=== PATIENT | male | born 1975 | race Hispanic/Latino ===

== ENCOUNTER 2016-12-23 17:04 | Emergency (ER) | payer MEDICAID, OTHER ==
[2016-12-23 17:09] VITALS: RESP 18; O2SAT 97
--- NOTE | 2016-12-23 17:37 | ED PDOC ---
HPI: Hypertension/Hypotension Time Seen by Provider: 12/23/16 17:18 Chief Complaint (Nursing): High Blood Pressure Past Medical History Vital Signs: Last Vital Signs Temp 101.1 F H 12/23/16 17:06 Pulse 99 H 12/23/16 17:06 Resp 18 12/23/16 17:06 BP 168/106 H 12/23/16 17:06 Pulse Ox 97 12/23/16 17:06 - Allergies Allergies/Adverse Reactions: Allergies Allergy/AdvReac Type Severity Reaction Status Date / Time No Known Allergies Allergy Verified 12/23/16 17:06 - ECG O2 Sat by Pulse Oximetry: 97 Disposition - Disposition Forms: [place] (Ind[place]ian)
--- NOTE | 2016-12-23 18:14 | RAD ---
HISTORY: Cough, fever. COMPARISON: No prior. TECHNIQUE: Chest PA and lateral FINDINGS: LUNGS: No active pulmonary disease. PLEURA: No significant pleural effusion identified. No pneumothorax apparent. CARDIOVASCULAR: Normal. OSSEOUS STRUCTURES: No significant abnormalities. VISUALIZED UPPER ABDOMEN: Normal. OTHER FINDINGS: None. IMPRESSION: No active disease.
[2016-12-23 18:28] VITALS: TEMP 101.9
[2016-12-23 18:31] LABS: BASO # 0.1 K/uL (0.0-0.2); BASO % 0.7 % (0.0-2.0); EOS # 0.1 K/uL (0.0-0.7); EOS % 0.9 % (0.0-4.0); HEMOGLOBIN 16.7 g/dL (12.0-18.0); LYMPH # 0.8 K/uL (1.0-4.3); MEAN CELL VOLUME 90.7 fl (80.0-94.0); MEAN CORPUSCULAR HEMOGLOBIN 31.9 pg (27.0-31.0); MEAN CORPUSCULAR HGB CONC 35.2 g/dL (33.0-37.0); MEAN PLATELET VOLUME 8.2 fl (7.2-11.7); MONO % 13.4 % (0.0-10.0); NEUT # 5.7 K/uL (1.8-7.0); NRBC % 0.3 % (0.0-0.0); RBC 5.24 Mil/uL (4.40-5.90); RED CELL DISTRIBUTION WIDTH 12.8 % (11.5-14.5); WHITE BLOOD COUNT 7.7 K/uL (4.8-10.8)
[2016-12-23 19:42] LABS: BLOOD UREA NITROGEN 15 mg/dl (9-20); CALCIUM 9.4 mg/dL (8.4-10.2); GFR AFRICAN-AMERICAN > 60; GFR NON-AFRICAN AMERICAN > 60
[2016-12-23 21:49] VITALS: BP 143/105; PULSE 91
== END 2016-12-23 21:38 | disposition home or self-care (01) ==
LOC: H.ER 17:04
DX: I10 Essential (primary) hypertension (principal)

== ENCOUNTER 2017-05-21 06:14 | Emergency (ER) | payer MEDICAID ==
[2017-05-21 06:29] VITALS: RESP 16; TEMP 97.8; O2SAT 98
[2017-05-21 07:47] VITALS: BP 156/108; PULSE 70
--- NOTE | 2017-05-21 07:53 | ED PDOC ---
HPI: CCC, URI, Sore Throat Time Seen by Provider: 05/21/17 07:10 Chief Complaint (Nursing): Cough, Cold, Congestion Chief Complaint (Provider): Cough History Per: Patient History/Exam Limitations: no limitations Have you had recent travel within the past 21 days to any of the following countries: [place], [place], [place] or [place]?: No Onset/Duration Of Symptoms: Days (x1 week) Current Symptoms Are (Timing): Still Present Location Of Pain: None Sick Contacts (Context): None Associated Symptoms: Cough, Nasal Congestion. denies: Fever, Chills, Sputum, Neck Pain, Vomiting, Diarrhea Ear Symptoms: Bilateral: None Additional Complaint(s): 41 year old male with a past medical history of hypertension presents to the ED complaining of cough productive of green phlegm x1 week. Patient states that his cough is exacerbated when he lays down. He also complains of mild rhinnorhea and nasal congestion. Denies shortness of breath, nausea, vomiting, fever, chills, headache, chest pain, back pain, numbness, tingling. Of note: Patient states that he has not taken his blood pressure medications in the past month due to insurance issues.(Norvax 5mg once per day) PMD: Dr. Llamas ([place]) Past Medical History Reviewed: Historical Data, Nursing Documentation, Vital Signs Vital Signs: Last Vital Signs Temp 97.8 F 05/21/17 06:26 Pulse 70 05/21/17 07:35 Resp 16 05/21/17 06:26 BP 156/108 H 05/21/17 07:35 Pulse Ox 98 05/21/17 08:00 - Medical History PMH: HTN - Surgical History Surgical History: Appendectomy - Family History Family History: States: Unknown Family Hx - Social History Current smoker - smoking cessation education provided: No Ex-Smoker (has not smoked in the last 12 months): No Alcohol: None Drugs: Denies - Home Medications Home Medications: Ambulatory Orders Medication Instructions Recorded Ibuprofen [Motrin Tab] 600 mg PO Q6 #30 tab 12/23/16 amLODIPine [Norvasc] 10 mg PO DAILY #30 tab 12/23/16 amLODIPine [Norvasc] 5 mg PO DAILY 10 Days tab 05/21/17 - Allergies Allergies/Adverse Reactions: Allergies Allergy/AdvReac Type Severity Reaction Status Date / Time No Known Allergies Allergy Verified 05/21/17 06:29 Review of Systems ROS Statement: Except As Marked, All Systems Reviewed And Found Negative Cardiovascular: Negative for: Chest Pain Respiratory: Positive for: Cough (productive of green phlegm). Negative for: Shortness of Breath Gastrointestinal: Negative for: Nausea Musculoskeletal: Negative for: Back Pain Neurological: Negative for: Numbness, Headache Physical Exam - Reviewed Nursing Documentation Reviewed: Yes Vital Signs Reviewed: Yes - Physical Exam Appears: Positive for: Non-toxic, No Acute Distress Head Exam: Positive for: ATRAUMATIC, NORMAL INSPECTION, NORMOCEPHALIC Skin: Positive for: Normal Color, Warm, Dry. Negative for: Rash Eye Exam: Positive for: Normal appearance, EOMI, PERRL. Negative for: Nystagmus ENT: Positive for: Normal ENT Inspection, Pharynx Is (clear), Nasal Congestion. Negative for: Pharyngeal Erythema, Tonsillar Exudate, Tonsillar Swelling Neck: Positive for: Normal, Painless ROM, Supple Cardiovascular/Chest: Positive for: Regular Rate, Rhythm, Chest Non Tender. Negative for: Tachycardia Respiratory: Positive for: Normal Breath Sounds. Negative for: Rhonchi, Wheezing, Respiratory Distress Gastrointestinal/Abdominal: Positive for: Normal Exam, Bowel Sounds, Soft. Negative for: Tenderness, Mass, Guarding, Rebound Back: Positive for: Normal Inspection. Negative for: L CVA Tenderness, R CVA Tenderness Extremity: Positive for: Normal ROM. Negative for: Tenderness, Deformity, Swelling Lymphatic: Positive for: Normal Exam. Negative for: Adenopathy Neurologic/Psych: Positive for: Alert, Oriented - ECG O2 Sat by Pulse Oximetry: 98 (RA) Pulse Ox Interpretation: Normal - Progress ED Course And Treament: 802: Stable. AAOx3. Tolerated PO. Fu with pcp. Medical Decision Making Medical Decision Makin Initial Impression 41 y/o male presenting with cough Initial Plan: * Ibuprofen 600mg PO * Norvasc 5mg PO * Reevaluation Documented by Sheela Brown acting as a scribe for Saulo Ramos MD. All medical record entries made by the Scribe were at my direction and personally dictated by me. I have reviewed the chart and agree that the record accurately reflects my personal performance of the history, physical exam, medical decision making, and the department course for this patient. I have also personally directed, reviewed, and agree with the discharge instructions and disposition. Disposition - Clinical Impression Clinical Impression: URI (upper respiratory infection), Hypertension - Patient ED Disposition Is Patient to be Admitted: No Counseled Patient/Family Regarding: Diagnosis, Need For Followup, Rx Given - Disposition [facility]errals: [facility] [Outside] - 05/23/17 Disposition: Routine/Home Disposition Time: 08:02 Condition: STABLE Additional Instructions: Return if not better in 3 days. Prescriptions: amLODIPine [Norvasc] 5 mg PO DAILY 10 Days tab Instructions: Upper Respiratory Infection (ED), Hypertension (ED)
== END 2017-05-21 08:11 | disposition home or self-care (01) ==
LOC: H.ER 06:14
DX: J06.9 Acute upper respiratory infection, unspecified (principal); I10 Essential (primary) hypertension